=== PATIENT | female | born 1955 | race Caucasian/White ===

== ENCOUNTER 2016-09-24 08:19 | Day surgery (SDC) | payer BC ==
[~2016-09-24 08:19] MED LIST: Lactated Ringers 1,000 ML IV SCH; Lidocaine 1%/Sod Bicarbonate in NS 8.4% 1 ML Syringe PRN; Sodium Chloride 0.9% 10 ML Syringe FLUSH PRN
--- NOTE | 2016-09-24 09:46 | PCM.PREANE ---
Preanesthetic Assessment - Anesthesia/Transfusion/Family Hx Anesthesia History: Prior Anesthesia Without Reaction Type of Anesthesia Reaction: Unknown Family History of Anesthesia Reaction: No Type of Transfusion Reactions: Reports: Unknown, Other (see below) - Review of Systems General: No Symptoms Pulmonary: No Symptoms Cardiovascular: No Symptoms, Other (high cholesterol, on meds) Gastrointestinal: No symptoms, Other (rectal bleeding x's 8 months) Neurological: No Symptoms Other: Reports: None - Physical Assessment NPO Status Date: 09/24/16 NPO Status Time: 00:30 Pulse: 90 O2 Sat by Pulse Oximetry: 95 Respiratory Rate: 17 Blood Pressure: 139/89 Vital Signs: Last Vital Signs Temp 37.2 C 09/24/16 08:30 Pulse 90 09/24/16 08:30 Resp 17 09/24/16 08:30 BP 139/89 09/24/16 08:30 Pulse Ox 95 09/24/16 08:30 Height: 1.6 m Weight: 61.235 kg ASA Class: 2 Mental Status: Alert & Oriented x3 Airway Class: Mallampati = 2 Dentition: Reports: Normal Dentition Thyro-Mental Finger Breadths: 3 Mouth Opening Finger Breadths: 3 ROM/Head Extension: Full Lungs: Clear to auscultation, Normal respiratory effort Cardiovascular: Regular Rate, Regular Rhythm - Allergies Allergies/Adverse Reactions: Allergies Allergy/AdvReac Type Severity Reaction Status Date / Time Penicillins Allergy Hives Verified 09/24/16 08:55 - Blood Blood Available: No Product(s) Available: None - Anesthesia Plan Pre-Op Medication Ordered: None - Acknowledgements Anesthesia Type Planned: MAC Pt an Appropriate Candidate for the Planned Anesthesia: Yes Alternatives and Risks of Anesthesia Discussed w Pt/Guardian: Yes Pt/Guardian Understands and Agrees with Anesthesia Plan: Yes PreAnesthesia Questionnaire HEENT History: Reports: Cataract, Impaired Vision Cardiovascular History: Reports: High Cholesterol, Hypertension Respiratory History: Reports: None SOLUTIONS SPECIALIST History: Reports: None Musculoskeletal History: Reports: None Neurological History: Reports: None Psychiatric History: Reports: None Endocrine/Metabolic History: Reports: None Hematologic History: Reports: None Immunologic History: Reports: None Oncologic (Cancer) History: Reports: None Dermatologic History: Reports: None - Past Surgical History Head Surgeries/Procedures: Reports: None HEENT Surgical History: Reports: Cataract Surgery, Tonsillectomy GI Surgical History: Reports: Appendectomy, Colonoscopy Female Surgical History: Reports: Tubal Ligation - SUBSTANCE USE Smoking Status *Q: Never Smoker Recreational Drug Use History: No - HOME MEDS Home Medications: Home Meds Lovastatin [Lovastatin] 10 mg PO DAILY 09/23/16 [History] - CURRENT (IN HOUSE) MEDS Current Meds: Current Medications Lactated Ringer's (Ringers, Lactated) 1,000 mls @ 125 mls/hr IV ASDIRECTED KIERSTEN Stop: 09/24/16 23:00 Last Admin: 09/24/16 08:41 Dose: 125 mls/hr Lidocaine/Sodium Bicarbonate (Buffered Lidocaine 1% In Ns 8.4%) 0.25 ml .XX ONETIME PRN PRN Reason: Prior to IV Start Stop: 09/24/16 18:00 Last Admin: 09/24/16 08:41 Dose: 0.25 ml Sodium Chloride (Saline Flush) 10 ml FLUSH ASDIRECTED PRN PRN Reason: Keep Vein Open Stop: 09/24/16 18:00
[2016-09-24] MEDS ORDERED: fentaNYL 100 MCG/2 ML SDV ONE (10:26)
[2016-09-24] MEDS ORDERED: Propofol 200 MG/20 ML SDV ONE ×2 (10:26→10:40)
--- NOTE | 2016-09-24 10:43 | PCM.OPNOTE ---
[id number] with rectal mass biopsies Findings: distal rectal sessile mass, nonocclusive, friable and not fixed on digital rectal examination Pre Op Diagnosis: rectal bleeding Post-Op Diagnosis: rectal mass Anesthesia Technique: MAC, Moderate sedation Primary Surgeon: Tre Gaitan Pathology: biopsies of rectal mass EBL in mLs: 0 Complications: None Condition: Good Free Text/Narrative:: After adequate IV sedation and analgesia was obtained with monitoring the patient was placed on her left side. Perianal inspection and digital rectal examination were remarkable for a palpable soft mass rectal lesion. A lubricated colonoscope was inserted into the rectum and advanced to the cecum without difficulty. The bowel preparation was excellent. The cecum, right colon , transverse, and descending colons were endoscopically normal with no mass lesions or inflammatory changes seen. Similarly the sigmoid was unremarkable. The proximal rectum was normal. In the retroflexed view I could see a distal rectal mass lesion which was eccentric, polypoid, and grossly fragile. It was about 2-3 cm in diameter. There was about 3 cm between it and the proximal anal canal. 4 biopsies were taken for histologic evaluation. At the end of the procedure I re-digitalized the anal canal with my index finger and felt the mass which was soft, mobile, and not fixed to underlying tissues. Air was removed as a finished procedure which she tolerated well. Photographs taken for the patient and for the record.
--- NOTE | 2016-09-24 10:48 | PCM48HPAN ---
Post Anesthesia Note - EVALUATION WITHIN 48HRS OF ANESTHETIC Vital Signs in Normal Range: Yes Patient Participated in Evaluation: Yes Respiratory Function Stable: Yes Airway Patent: Yes Cardiovascular Function Stable: Yes Hydration Status Stable: Yes Pain Control Satisfactory: Yes Nausea and Vomiting Control Satisfactory: Yes Mental Status Recovered: Yes
[2016-09-24 11:28] VITALS: BP 132/77
== END 2016-09-24 11:40 | disposition home or self-care (01) ==
LOC: JD.SDS 08:19
PROVIDERS: ATTEND Surgery
DX: D12.8 Benign neoplasm of rectum (principal); I10 Essential (primary) hypertension; E78.00 Pure hypercholesterolemia, unspecified; Z79.899 Other long term (current) drug therapy; Z90.49 Acquired absence of other specified parts of digestive tract; Z98.51 Tubal ligation status; Z98.890 Other specified postprocedural states; Z88.0 Allergy status to penicillin
CPT/HCPCS: 45380; J3010; J7120; J2704

== ENCOUNTER 2016-10-22 07:43 | Day surgery (SDC) | payer BC ==
--- NOTE | 2016-10-22 08:44 | PCM.PREANE ---
Preanesthetic Assessment - Procedure Proposed Procedure: Colonoscopy with polypectomy - Anesthesia/Transfusion/Family Hx Anesthesia History: Prior Anesthesia Without Reaction Family History of Anesthesia Reaction: No Transfusion History: No Prior Transfusion(s) Type of Transfusion Reactions: Reports: Unknown, Other (see below) - Review of Systems General: No Symptoms Pulmonary: No Symptoms Cardiovascular: No Symptoms Gastrointestinal: No symptoms Neurological: No Symptoms Other: Reports: None - Physical Assessment NPO Status Date: 10/21/16 NPO Status Time: 22:30 O2 Sat by Pulse Oximetry: 95 Respiratory Rate: 16 Vital Signs: Last Vital Signs Temp 36.2 C 10/22/16 08:10 Pulse 84 10/22/16 08:10 Resp 16 10/22/16 08:10 BP 129/82 10/22/16 08:10 Pulse Ox 95 10/22/16 08:10 Height: 1.6 m Weight: 61.689 kg ASA Class: 2 Mental Status: Alert & Oriented x3 Thyro-Mental Finger Breadths: 3 Mouth Opening Finger Breadths: 3 ROM/Head Extension: Full Lungs: Clear to auscultation, Normal respiratory effort Cardiovascular: Regular Rate, Regular Rhythm - Allergies Allergies/Adverse Reactions: Allergies Allergy/AdvReac Type Severity Reaction Status Date / Time Penicillins Allergy Hives Verified 10/21/16 16:11 - Blood Blood Available: No Product(s) Available: None - Anesthesia Plan Pre-Op Medication Ordered: None - Acknowledgements Anesthesia Type Planned: MAC Pt an Appropriate Candidate for the Planned Anesthesia: Yes Alternatives and Risks of Anesthesia Discussed w Pt/Guardian: Yes Pt/Guardian Understands and Agrees with Anesthesia Plan: Yes PreAnesthesia Questionnaire HEENT History: Reports: Cataract, Impaired Vision Cardiovascular History: Reports: High Cholesterol, Hypertension Respiratory History: Reports: None Gastrointestinal History: Reports: Colon Polyp Genitourinary History: Reports: None PATTERN KEEPER History: Reports: None Musculoskeletal History: Reports: None Neurological History: Reports: None Psychiatric History: Reports: None Endocrine/Metabolic History: Reports: None Hematologic History: Reports: None Immunologic History: Reports: None Oncologic (Cancer) History: Reports: None Dermatologic History: Reports: None - Past Surgical History Head Surgeries/Procedures: Reports: None HEENT Surgical History: Reports: Cataract Surgery, Tonsillectomy GI Surgical History: Reports: Appendectomy, Colonoscopy Female Surgical History: Reports: Tubal Ligation - SUBSTANCE USE Smoking Status *Q: Never Smoker Recreational Drug Use History: No - HOME MEDS Home Medications: Home Meds Lovastatin 10 mg PO DAILY 09/23/16 [History] - CURRENT (IN HOUSE) MEDS Current Meds: Current Medications Lactated Ringer's (Ringers, Lactated) 1,000 mls @ 125 mls/hr IV ASDIRECTED KIERSTEN Stop: 10/22/16 23:00 Last Admin: 10/22/16 08:25 Dose: 125 mls/hr Lidocaine/Sodium Bicarbonate (Buffered Lidocaine 1% In Ns 8.4%) 0.25 ml .XX ONETIME PRN PRN Reason: Prior to IV Start Stop: 10/22/16 18:00 Last Admin: 10/22/16 08:25 Dose: 0.25 ml Sodium Chloride (Saline Flush) 10 ml FLUSH ASDIRECTED PRN PRN Reason: Keep Vein Open Stop: 10/22/16 18:00
[2016-10-22] MEDS ORDERED: fentaNYL 100 MCG/2 ML SDV ONE (09:05)
[2016-10-22] MEDS ORDERED: Propofol 200 MG/20 ML SDV ONE (09:05)
[2016-10-22] MEDS ORDERED: Lidocaine 1% with EPINEPHrine 1:100,000 20 ML MDV ONE (09:34)
[2016-10-22] MEDS ORDERED: Methylene Blue 50 MG/10 ML Ampule ONE (10:00)
[2016-10-22] MEDS ORDERED: ePHEDrine/Normal Saline 25 MG/5 ML Syringe ONE (10:33)
--- NOTE | 2016-10-22 10:42 | PCM.OPNOTE ---
- General Post-Op/Procedure Note Date of Surgery/Procedure: 10/22/16 Operative Procedure(s): Flexible sigmoidoscopy with (EMR) endoscopic mucosal resection of a low rectal sessile polyp using blue dye and the lift technique Findings: 3 cm sessile low rectal polyp Pre Op Diagnosis: 3 cm rectal polyp Post-Op Diagnosis: Same Anesthesia Technique: Local, MAC, Moderate Sedation Primary Surgeon: Tre Gaitan Pathology: Polyp material EBL in mLs: 2 Complications: None Condition: Good Free Text/Narrative:: After adequate IV sedation and analgesia was obtained the patient was placed in the left lateral decubitus position. Digital rectal examination confirmed the presence of the polyp. A lubricated colonoscope was inserted into the rectum and then into the distal sigmoid with air insufflation. The polyp was visualized. I injected a mixture of free water along with blue dye and epinephrine into the base of the polyp to lift the mucosa away from the underlying musculature.. The polyp was removed in 3 sections with hot snare cautery on blend current. The specimen was retrieved. I then circumferentially cauterized the polypectomy site for hemostasis and for fulguration of any residual polypoid tissue. Outbound Sales Specialist photographs were taken for the patient and for the record. There were no procedural complications.
[2016-10-22 11:10] VITALS: BP 121/64
== END 2016-10-22 11:10 | disposition home or self-care (01) ==
LOC: JD.SDS 07:43
PROVIDERS: ATTEND Surgery
PROC: 0DBP8ZZ Excision of Rectum, Via Natural or Artificial Opening Endoscopic (ICD-10-PCS; principal; 2016-10-22)
DX: D12.8 Benign neoplasm of rectum (principal); E78.00 Pure hypercholesterolemia, unspecified; I10 Essential (primary) hypertension; Z88.0 Allergy status to penicillin; Z79.899 Other long term (current) drug therapy; Z98.51 Tubal ligation status; Z90.49 Acquired absence of other specified parts of digestive tract; Z90.89 Acquired absence of other organs; Z98.49 Cataract extraction status, unspecified eye; Z98.890 Other specified postprocedural states
CPT/HCPCS: 45349; 88305; J3010; J7050; J7120; 00902; J2704; Q9968

== ENCOUNTER 2020-11-27 09:20 | Day surgery (SDC) | payer MEDICARE, OTHER ==
[~2020-11-27 09:20] MED LIST changes: +Lidocaine 1%/Sod Bicarbonate in NS 8.4% 1 ML Syringe IDERM PRN; -Lidocaine 1%/Sod Bicarbonate in NS 8.4% 1 ML Syringe PRN
--- NOTE | 2020-11-27 10:23 | PCM.PREANE ---
Preanesthetic Assessment - Anesthesia/Transfusion/Family Hx Anesthesia History: Prior Anesthesia Without Reaction Family History of Anesthesia Reaction: No Transfusion History: No Prior Transfusion(s) Type of Transfusion Reactions: Reports: Unknown, Other (see below) - Review of Systems General: No Symptoms Pulmonary: No Symptoms Cardiovascular: No Symptoms Gastrointestinal: No Symptoms Neurological: No Symptoms Other: Reports: None - Physical Assessment NPO Status Date: 05/30/20 NPO Status Time: 05:30 ASA Class: 1 Mental Status: Alert & Oriented x3 Airway Class: Mallampati = 2 Dentition: Reports: Normal Dentition Thyro-Mental Finger Breadths: 3 Mouth Opening Finger Breadths: 3 ROM/Head Extension: Full Lungs: Clear to Auscultation, Normal Respiratory Effort Cardiovascular: Regular Rate, Regular Rhythm - Allergies Allergies/Adverse Reactions: Allergies Allergy/AdvReac Type Severity Reaction Status Date / Time Penicillins Allergy Hives Verified 11/26/20 18:12 - Acknowledgements Anesthesia Type Planned: MAC Pt an Appropriate Candidate for the Planned Anesthesia: Yes Alternatives and Risks of Anesthesia Discussed w Pt/Guardian: Yes Pt/Guardian Understands and Agrees with Anesthesia Plan: Yes PreAnesthesia Questionnaire HEENT History: Reports: Cataract, Impaired Vision Cardiovascular History: Reports: High Cholesterol, Hypertension (Hx of HTN, no medication) Respiratory History: Reports: None Gastrointestinal History: Reports: Colon Polyp, Other (See Below) Other Gastrointestinal History: rectal bleeding Genitourinary History: Reports: None METALLURGICAL TESTER History: Reports: None Musculoskeletal History: Reports: None Neurological History: Reports: None Psychiatric History: Reports: None Endocrine/Metabolic History: Reports: None Hematologic History: Reports: None Immunologic History: Reports: None Oncologic (Cancer) History: Reports: None Dermatologic History: Reports: None - Past Surgical History Head Surgeries/Procedures: Reports: None HEENT Surgical History: Reports: Cataract Surgery, Tonsillectomy Cardiovascular Surgical History: Reports: None Respiratory Surgical History: Reports: None GI Surgical History: Reports: Appendectomy, Colonoscopy Female Surgical History: Reports: Tubal Ligation Endocrine Surgical History: Reports: None Neurological Surgical History: Reports: None Musculoskeletal Surgical History: Reports: None Oncologic Surgical History: Reports: None - SUBSTANCE USE Tobacco Use Status *Q: Never Tobacco User Recreational Drug Use History: No - HOME MEDS Home Medications: Home Meds Lovastatin 10 mg PO DAILY 09/23/16 [History] Albuterol [Ventolin HFA] 1 - 2 puff INH Q4H PRN 11/26/20 [History] Aspirin [Halfprin] 81 mg PO DAILY 11/26/20 [History] Calcium Carb, Citrate/Vit D3 [Citracal + D ER] 1 tab PO DAILY 11/26/20 [History] Cetirizine HCl [Zyrtec] 10 mg PO DAILY 11/26/20 [History] Cholecalciferol (Vitamin D3) [Vitamin D3] 1,000 unit PO DAILY 11/26/20 [History] Docosahexaenoic Acid [ Dha] 200 mg PO DAILY 11/26/20 [History] Lutein/Minerals/Vit A,C & E [Ocuvite] 1 tab PO DAILY 11/26/20 [History] [place]-3/DHA/Epa/Fish Oil [Fish Oil 1,400 MG Softgel] 1 cap PO DAILY 11/26/20 [History] - CURRENT (IN HOUSE) MEDS Current Meds: Current Medications Lactated Ringer's (Ringers, Lactated) 1,000 mls @ 125 mls/hr IV ASDIRECTED KIERSTEN Stop: 11/27/20 23:00 Lidocaine/Sodium Bicarbonate (Lidocaine 1%/Sod Bicarbonate In Ns 8.4% 1 Ml Syringe) 0.25 ml IDERM ONETIME PRN PRN Reason: Prior to IV Start Stop: 11/27/20 23:00 Sodium Chloride (Sodium Chloride 0.9% 10 Ml Syringe) 10 ml FLUSH ASDIRECTED PRN PRN Reason: Keep Vein Open Stop: 11/27/20 23:00
[2020-11-27] MEDS ORDERED: Propofol 200 MG/20 ML SDV ONE ×2 (11:06→11:27)
[2020-11-27] MEDS ORDERED: fentaNYL 100 MCG/2 ML SDV ONE (11:06)
[2020-11-27] MEDS ORDERED: Lidocaine 1% 4 ML ONE (11:07)
[2020-11-27 12:34] VITALS: BP 124/66; PULSE 74
--- NOTE | 2020-11-27 13:03 | PCM.PRNOTE ---
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 Friable and soft, palpable on digital exam, not fixed. No other polyps identified. Prep was excellent, cecum reached. Detailed Report: The patient was taken to the endoscopy suite and placed in left lateral decubitus position. Timeout was performed and monitored anesthesia care was initiated. The anus appeared normal. On digital rectal exam, again, abnormal friable raised mucosa was palpated at the 9 o'clock position with the finger just a few centimeters proximal to the sphincter complex. The colonoscope was inserted into the rectum. A broad-based fungating multilobular lesion with polypoid appearance was visualized. The scope was advanced all the way to the cecum. This was challenging due to redundancy and twisting of the colon especially at the level of the hepatic flexure. The appendiceal orifice was visualized. Prep was excellent. The scope was slowly withdrawn and mucosal surfaces carefully inspected. No polyps were identified otherwise. The scope was retroflexed in the rectum to provide a different view of the rectal lesion. Several pictures were taken. An endoscopic snare was used to remove tissue piecemeal. Although it seemed that this tissue was readily suctioned through the scope, there was not much tissue identified in the trap. Therefore, several biopsies were obtained with cold jumbo forceps. The lesion had a gross appearance worrisome for malignancy. This was especially of concern given the appearance of the tubulovillous adenoma in the same site in 2017. Air was suctioned from the distal colon and rectum prior to withdrawal of the scope. The patient tolerated the procedure well.
== END 2020-11-27 12:41 | disposition home or self-care (01) ==
LOC: JD.SDS 09:20
PROVIDERS: ATTEND Surgery
DX: Z12.11 Encounter for screening for malignant neoplasm of colon (principal); D12.8 Benign neoplasm of rectum; E78.00 Pure hypercholesterolemia, unspecified; I10 Essential (primary) hypertension; Z90.49 Acquired absence of other specified parts of digestive tract; Z98.890 Other specified postprocedural states; Z79.899 Other long term (current) drug therapy; Z88.0 Allergy status to penicillin
CPT/HCPCS: 45380; 45385; 88305; J2704; J3010; J7120; 00812